=== PATIENT | male | born 1990 | race Caucasian/White ===

== ENCOUNTER 2021-10-21 21:08 | Emergency (ER) | payer SELFPAY ==
[~2021-10-21] VITALS: Ht 180.3 cm; Wt 98.0 kg
[2021-10-21 21:21] VITALS: BP 129/80
== END 2021-10-22 00:36 | disposition left against medical advice (07) ==
LOC: ER 21:08
DX: Z53.21 Procedure and treatment not carried out due to patient leaving prior to being seen by health care provider (principal)